=== PATIENT | male | born 1950 | race Caucasian/White ===

== ENCOUNTER → 2022-04-23 09:29 | Outpatient (BNVA) | payer OTHER, SELFPAY | PROVIDERS: Visit Provider Physician Assistant | DX: Z01.818 Encounter for other preprocedural examination (principal) | CPT/HCPCS: 99202 ==

== ENCOUNTER 2023-01-29 09:39 | Day surgery (SDC) | payer OTHER, SELFPAY ==
[2023-01-27 10:40] VITALS: BMI 27.0
--- NOTE | 2023-01-28 13:20 | P.CONAN_ITS ---
Documented by User: Zo Acosta NP 01/28/23 13:21 HPI - Anesthesia Eval Consult details Narrative: 72yo M for Colonoscopy PMFSH Active Problems Active Problems: All Active Problems (Updated 04/23/22 @ 11:00 by Cyndi Burleson PA-C) Encounter for screening colonoscopy (Acute) Family History Family History Mother Breast CA Maternal Grandfather Stroke Father Prostate CA Surgical History Surgical History History of nasal surgery Hx of colonoscopy Hx of hernia repair Hx of melanoma excision Social History Social History Household Members: Family Are you a primary health care sanitary technician to a significant other at home: No Do you presently have visiting nurse or other home services: No Alcohol intake: never Patient Tobacco Use Status: Former Tobacco user Have you been hit, kicked, punched, or otherwise hurt by someone within the past year? If so, by whom?: No Are you DNR?: No Advance Directives: No Advance Directives Information Provided: Yes Recently lost weight without trying: No Nutrition Risks: No Nutritional Risk Poor oral hygiene: No Meds Allergies Allergy/AdvReac Type Severity Reaction Status Date / Time lactose [LACTOSE] Allergy Intermediate DIARRHEA Verified 04/23/22 09:31 tamsulosin [From Flomax] Allergy Unknown Verified 01/27/23 10:29 Home Medications Medication Instructions Recorded Confirmed Last Taken Type buspirone 5 mg tablet 5 mg PO TID 04/23/22 01/27/23 Unknown History sertraline 100 mg tablet 100 mg PO DAILY 04/23/22 01/27/23 Unknown History fluticasone propionate 50 2 spray intranasal DAILY PRN 01/27/23 01/27/23 Unknown History mcg/actuation nasal Allergy Symptoms spray,suspension ibuprofen 600 mg tablet 600 mg PO Q8H PRN Pain 01/27/23 01/27/23 Unknown History metronidazole 0.75 % topical cream 1 appl topical DAILY PRN Skin 01/27/23 01/27/23 Unknown History Irritation pravastatin 40 mg tablet 40 mg PO DAILY 01/27/23 01/27/23 Unknown History sulfacetamide sodium 10 % topical 1 appl topical DAILY PRN Itching 01/27/23 01/27/23 Unknown History cream Exam Exam Date and Time: January 28, 2023 1320 Height,Weight and Vital Signs: Height 5 ft 10 in Weight 85.275 kg Assessment and Plan Assessment Anesthesia Assessment: Chart Reviewed Documented by User: Natali English MD 01/29/23 10:28 PMFSH Family History Family History Mother Breast CA Maternal Grandfather Stroke Father Prostate CA Surgical History Surgical History History of nasal surgery Hx of colonoscopy Hx of hernia repair Hx of melanoma excision History of Problems with Anesthesia: No Social History Social History Household Members: Family Are you a primary health care sanitary technician to a significant other at home: No Do you presently have visiting nurse or other home services: No Alcohol intake: never Patient Tobacco Use Status: Former Tobacco user Have you been hit, kicked, punched, or otherwise hurt by someone within the past year? If so, by whom?: No Are you DNR?: No Advance Directives: No Advance Directives Information Provided: Yes Recently lost weight without trying: No Nutrition Risks: No Nutritional Risk Poor oral hygiene: No Meds Allergies Allergy/AdvReac Type Severity Reaction Status Date / Time lactose [LACTOSE] Allergy Intermediate DIARRHEA Verified 04/23/22 09:31 tamsulosin [From Flomax] Allergy Unknown Verified 01/27/23 10:29 Home Medications Medication Instructions Recorded Confirmed Last Taken Type buspirone 5 mg tablet 5 mg PO TID 04/23/22 01/27/23 Unknown History sertraline 100 mg tablet 100 mg PO DAILY 04/23/22 01/27/23 Unknown History fluticasone propionate 50 2 spray intranasal DAILY PRN 01/27/23 01/27/23 Unknown History mcg/actuation nasal Allergy Symptoms spray,suspension ibuprofen 600 mg tablet 600 mg PO Q8H PRN Pain 01/27/23 01/27/23 Unknown History metronidazole 0.75 % topical cream 1 appl topical DAILY PRN Skin 01/27/23 01/27/23 Unknown History Irritation pravastatin 40 mg tablet 40 mg PO DAILY 01/27/23 01/27/23 Unknown History sulfacetamide sodium 10 % topical 1 appl topical DAILY PRN Itching 01/27/23 01/27/23 Unknown History cream Exam Airway Mallampati Class: II TM Dist: >3cm Neck ROM: Full Loose/Missing/Broken Teeth: No Heart: RRR Lungs: CTA Assessment and Plan Assessment Anesthesia Assessment: Anesthesia Plan Discussed Final Anesthetic Review History of Problems with Anesthesia: No NPO: Yes ASA Class: II Final Preanesthetic Review: Meds/Allgs Chart Reviewed, Consent Obtained/Reviewed and Anes Risks/Benef Reviewed Patient Risk: Low Procedure Risk: Low Anesthetic Plan Anesthetic Plan: MAC: Disposition: Standard PACU
[2023-01-29 10:17] VITALS: BP 154/79; PULSE 71; RESP 18; TEMP 36.6; O2SAT 97; BMI 27.0
[2023-01-29] MEDS: Lactated Ringers 1,000 ML 100 ML IVCONT (10:26)
--- NOTE | 2023-01-29 10:52 | MHC.SHP ---
Pre-Procedural Eval Section A Date of Service: 01/29/23 Section B Chief Complaint: Screening Details of Present Illness: Surgical History History of nasal surgery Hx of colonoscopy Hx of hernia repair Hx of melanoma excision Family History Mother Breast CA Maternal Grandfather Stroke Father Prostate CA Present Medications: see Short Stay Collaborative assessment Allergies: Allergies Allergy/AdvReac Type Severity Reaction Status Date / Time lactose [LACTOSE] Allergy Intermediate DIARRHEA Verified 04/23/22 09:31 tamsulosin [From Flomax] Allergy Unknown Verified 01/27/23 10:29 Review of Systems Review of Systems Comment: 10 point ROS negative Exam Exam Comment: Gen appear: No acute distress HEENT: no icterus Chest: No overt resp distress Abd: soft, nontender, nondistended Psych: Stable affect, answering questions appropriately Neuro: A/Ox3 noted to move all extremities spontaneously Ext: no peripheral edema Plan Diagnosis/Plan: Unchanged I have reviewed the history and physical and performed a pertinent physical examination on my patient. No changes have occurred unless specified. Time Spent With Patient Time: Total time managing care of this patient today ____ minutes.
--- NOTE | 2023-01-29 10:55 | P.OP_ITS ---
Operative Note Operative Note Date of Service: 01/29/23 Narrative: Procedure: Colonoscopy Indication: Screening Endoscopist: Torrie Dunn MD Anesthesia Provider: Sloane Veloz CRNA Anesthesia type: MAC Instrument: Olympus [id number]-[id number] Consent: Indication, risks vs benefits, and alternatives were discussed with the patient who gave written informed consent to proceed. EKG, pulse, pulse oximetry and blood pressure were monitored throughout the procedure. Please see anesthesia flowsheet. Procedure: The patient was brought to the procedure room and placed in the left lateral decubitus position. IV medications were administered by the anesthesia provider in attendance. A digital rectal exam was performed which was abnormal due to finding of hemorrhoids and enlarged prostate. The colonoscope was then inserted through the anus and advanced through the colon to the cecum at [cm,][a nd terminal ileum]. Mucosa was carefully examined under high definition white light as the instrument was slowly withdrawn in a retrograde panoramic fashion. Retroflexion was performed in rectum. The procedure was not difficult. There were no immediate obvious complications. The quality of the prep was BBPS: 2+3+3 = adequate Withdrawal time 11 minutes. Limitations: No limitations. Findings: Mucosa: Normal to cecum and terminal ileum. Protruding lesions: * Large internal hemorrhoids [without] stigmata of recent bleeding. Impression: 1. Normal colon and terminal ileum mucosa 2. Internal and external hemorrhoids 3. Enlarged prostate Recommendations: - Repeat colonoscopy for asymptomatic colorectal cancer screening may be considered in 10 years if patient in good health.
[2023-01-29 11:26] VITALS: BP 113/70; PULSE 63; RESP 16; TEMP 36.1; O2SAT 98
[2023-01-29 11:41] VITALS: BP 112/71; PULSE 58; RESP 16; TEMP 36.4; O2SAT 96
== END 2023-01-29 12:38 | disposition home or self-care (01) ==
PROVIDERS: PCP Physician Assistant Medical; Visit Provider Internal Medicine
PROC: 0DJD8ZZ Inspection of Lower Intestinal Tract, Via Natural or Artificial Opening Endoscopic (ICD-10-PCS; CPT 45378; principal; 2023-01-29 11:20)
DX: Z12.11 Encounter for screening for malignant neoplasm of colon (principal); K64.8 Other hemorrhoids; N40.0 Benign prostatic hyperplasia without lower urinary tract symptoms; Z87.891 Personal history of nicotine dependence; Z79.899 Other long term (current) drug therapy
CPT/HCPCS: 45378

== ENCOUNTER → 2023-01-29 09:39 | Outpatient (BNV) | payer OTHER, SELFPAY | PROVIDERS: PCP Physician Assistant Medical; Visit Provider Internal Medicine | DX: Z12.11 Encounter for screening for malignant neoplasm of colon (principal); K64.8 Other hemorrhoids | CPT/HCPCS: 45378 ==